=== PATIENT | male | born 1955 | race Caucasian/White ===

== ENCOUNTER → 2018-05-11 11:00 | Outpatient (CLI) | payer OTHER, SELFPAY ==
--- NOTE | 2018-05-11 11:01 | DI.RAD.S_ITS ---
PROCEDURE: XR FINGER LT MIN 2V INDICATIONS: Swelling of finger after metal sliver splinter removed TECHNIQUE: AP hand, 2 views of the second finger(s) acquired. COMPARISON: None. FINDINGS: Bones: No fractures or dislocations. No suspicious bony lesions. Soft tissues: No suspicious soft tissue calcifications. IMPRESSION: No foreign body seen. No fracture found. Dictated by: Hesham Hernandez M.D. on 05/11/2018 at 11:30 Approved by: Hesham Hernandez M.D. on 05/11/2018 at 11:31
== END ==
PROVIDERS: Visit Provider Physician Assistant
DX: M79.89 Other specified soft tissue disorders (principal)
CPT/HCPCS: 73140